=== PATIENT | male | born 1960 | race American Indian/Alaskan Native ===

== ENCOUNTER 2017-05-19 14:19 | Outpatient (CLI) | payer OTHER ==
--- NOTE | 2017-05-19 14:59 | XRay Report ---
Bilateral knees: Pain. Standing views demonstrate bilateral periarticular spurs on both lateral and medial compartments predominantly involving the femoral condyles. The joint spaces are preserved and the articular surfaces appear smooth. There is normal alignment of the knee. No swelling and no effusions identified. Impression: Mild degenerative periarticular spurs bilaterally.
== END 2017-05-19 14:20 | disposition home or self-care (01) ==
LOC: SPVIMAG 14:19
PROVIDERS: ATTEND Orthopaedic Surgery
DX: M25.861 Other specified joint disorders, right knee (principal); M25.862 Other specified joint disorders, left knee